=== PATIENT | male | born 1965 | race Caucasian/White ===

== ENCOUNTER 2017-10-02 21:00 | Observation (INO) ==
[2017-10-02 21:33] LABS: Basophils # 0.1 K/mm3 (0-0.2); Basophils % 0.9 % (0.1-2.0); Eosinophils # 0.2 K/mm3 (0.0-0.4); Eosinophils % 2.9 % (0.1-12.0); Hematocrit 38.8 % (42.0-52.0); Hemoglobin 13.2 g/dL (14.1-18.0); Lymphocytes # 3.4 K/mm3 (0.7-4.5); Lymphocytes % 40.9 K/mm3 (10-50); Mean Corpuscular Hemoglobin 28.3 pg (27.0-31.2); Mean Corpuscular Volume 83.1 fl (80-94); Mean Platelet Volume 7.4 fl (7.4-10.4); Monocytes # 0.4 K/mm3 (0.1-1.0); Monocytes % 5.2 % (1.7-9.3); Neutrophils # 4.2 K/mm3 (1.8-7.8); Neutrophils % 50.1 % (37.0-80.0); Platelet Count 223 K/mm3 (142-424); Red Blood Count 4.66 M/mm3 (4.60-6.20); Red Cell Distribution Width 13.4 % (11.5-17.5); White Blood Count 8.3 K/mm3 (4.8-10.8)
[2017-10-02 21:47] LABS: Anion Gap 12.3 mEq/L (5-15); Blood Urea Nitrogen 13 mg/dL (7-18); Calcium 9.1 mg/dL (8.5-10.1); Carbon Dioxide 27 mmol/L (21.0-32.0); Chloride 103 mmol/L (98-107); Glucose 170 mg/dL (74-106); Potassium 3.3 mmoL/L (3.5-5.1); Sodium 139 mmol/L (136-145)
--- NOTE | 2017-10-02 22:40 | Emergency Department Note ---
ED Disposition Clinical Impression: Chest pain Qualifiers: Chest pain type: other chest pain Qualified Code(s): R07.89 - Other chest pain ; R07.8 - Other chest pain Diabetes mellitus Qualifiers: Diabetes mellitus type: type 2 Diabetes mellitus oysterman insulin use: unspecified halfway insulin use status Diabetes mellitus complication status: with unspecified complications Qualified Code(s): E11.8 - Type 2 diabetes mellitus with unspecified complications Shoulder pain, left Qualifiers: Chronicity: acute Qualified Code(s): M25.512 - Pain in left shoulder Disposition: Admitted as Observation Condition on Discharge: Good Referrals: Slainas Gibbons MD [Primary Care Provider] - - Critical Care Critical Care Time: No Attestation: On 10/02/17, the high probability of a clinically significant, sudden or life threatening deterioration of the following system(s) required my full and direct attention, intervention and personal management. The time I documented below is in addition to time spent performing reported procedures but includes the following listed in this critical care notation. Medical Decision Making - Medical Records Medical records reviewed: Yes: I reviewed the patient's medical records. - [place] Inquiry Pt receiving controlled substance: No Vital Signs: 10/02/17 21:04 10/02/17 21:19 10/02/17 22:01 Temperature 98.1 F 98.2 F Temperature Source Temporal Artery Scan Oral Pulse Rate [Right Brachial] 64 80 54 L Respiratory Rate 16 18 18 Blood Pressure [Right Arm] 157/84 157/84 138/75 Blood Pressure Mean [Right Arm] 108 108 96 Blood Pressure Source [Right Arm] Automatic Cuff Automatic Cuff Blood Pressure Position [Right Arm] Sitting Sitting 02 Sat by Pulse Oximetry 97 96 97 Oxygen Delivery Method Room Air Room Air - Lab Data Lab results reviewed: Yes: I reviewed the patient's lab results. Lab Results 10/02/17 21:20: WBC 8.3, RBC 4.66, Hgb 13.2 L, Hct 38.8 L, MCV 83.1, MCH 28.3, MCHC 34.0, RDW 13.4, Plt Count 223, MPV 7.4, Neut % (Auto) 50.1, Lymph % (Auto) 40.9, [place] % (Auto) 5.2, Eos % (Auto) 2.9, Baso % (Auto) 0.9, Neut # (Auto) 4.2 , Lymph # (Auto) 3.4, [place] # (Auto) 0.4, Eos # (Auto) 0.2, Baso # (Auto) 0.1 10/02/17 21:20: Sodium 139, Potassium 3.3 L, Chloride 103, Carbon Dioxide 27, Anion Gap 12.3, BUN 13, Creatinine 1.00, Estimated Creat Clear 113, Estimated GFR 79, Est GFR ( Amer) 96, Glucose 170 H, Calcium 9.1, Troponin I < 0.02 Result diagrams: 10/02/17 21:20 10/02/17 21:20 Orders (Tests/Meds): ED MEDICATIONS Discontinued Medications Generic Name Dose Route Start Last Admin Trade Name Freq PRN Reason Stop Dose Admin Aspirin 325 mg 10/02/17 21:14 10/02/17 21:16 Aspirin 325mg Tablet PO 10/02/17 21:15 325 mg ONCE ONE Administration Morphine Sulfate 4 mg 10/02/17 22:21 10/02/17 22:25 Morphine 4mg/Ml Syringe IV 10/02/17 22:22 4 mg ONCE ONE Administration Nitroglycerin 0.4 mg 10/02/17 21:14 10/02/17 21:15 Nitrostat 0.4mg Sl Tablet SL 10/02/17 21:15 0.4 mg ONCE ONE Administration Nitroglycerin 1 gm 10/02/17 22:21 10/02/17 22:25 Nitroglycerin 1 Inch Oint Udp TD 10/02/17 22:22 1 gm ONCE ONE Administration Ondansetron HCl 4 mg 10/02/17 22:21 10/02/17 22:25 Zofran 4mg/2ml Vial IV 10/02/17 22:22 4 mg ONCE ONE Administration ORDERS Category Date Time Status XR chest 2V Stat Exams 10/02/17 21:14 Taken - Radiology Data #1 Image(s): Chest Image Reviewed: Yes I reviewed the patient's radiology image Preliminary Findings: Normal/NAD - ECG Data Tracing #1 Normal Sinus Rhythm: Yes Ischemic changes: non-specific ST-T wave changes - Physician Consults Physician Consulted: kylie Reason -: Admission Chest Pain HPI - General Chief Complaint: Chest Pain Stated Complaint: left arm pain Time Seen by Provider: 10/02/17 21:30 Mode of Arrival: Ambulatory Source of Information: Patient, Spouse, Medical Record Limitations: No Limitations Description of Symptoms (Recalled from ER Triage Doc. by RN): Pt advises he has pain shooting down into his arm and into his chest. Advises the pain has gotten worse today. - History of Present Illness HPI narrative: pt with lt ant chest pain over the last few days - he has no known card disease - he has lt neck with rad to lt upper ext but feels this is different than his chst pain MD complaint: chest pain indicative of cardiac Onset (ago): day(s) Duration: intermittent Activity at onset: during rest Pain location: left chest Severity: moderate Quality: other (thrombing) Relieving factors: nothing Risk Factors for CAD: Hypertension, Hypercholesterolemia, Family Hx of CAD, Diabetes Treatments prior to or on arrival for Cardiac Chest Pain: none - TAWANNA Score Non-Stemi Age of patient: Less than 65 yrs Number of risk factors for CAD: Presence of 3 or more Prior coronary artery stenosis(seen in coronary angiography): Less than 50% ST-Segment deviation on ECG (more than 1 min): Absent Prior aspirin intake: No ASA in the last 7 days Severe anginal chest pain: No or one episode in last 24 hours Elevated cardiac markers(CK-MB or troponin): Absent Non-Stemi Risk Score: 1 - Related Data Home Medications Medication Instructions Recorded Confirmed glipiZIDE [Glipizide] 10 mg PO DAILY 10/02/17 10/02/17 Allergies Allergy/AdvReac Type Severity Reaction Status Date / Time No Known Allergies Allergy Verified 10/02/17 21:12 [facility] History I have reviewed the patient's past medical history: Yes Medical History: Reports:: Diabetes Mellitus Type 2 Denies:: Cancer, Diabetes Mellitus Type 1, Internal Pacemaker, MRSA Other Surgeries: No: Pacemaker Amputation: No Fractures: Yes (right hand) - Social History Alcohol Intake: never - Psychiatric History Expresses thoughts of harming self/others: None Suicide Plan Description: No Plan ROS Obtained: Yes All systems reviewed & no additional complaints - Constitutional Constitutional: Denies fever(s) - Eyes Eyes: Denies change in vision - ENT Ears, Nose, Mouth, and Throat: Denies sore throat - Cardiovascular Cardiovascular: Reports chest pain, Denies dyspnea - Respiratory Respiratory: No cough - Gastrointestinal Gastrointestingal: Denies: abdominal pain - Genitourinary Male Genitourinary: Denies hematuria - Musculoskeletal Musculoskeletal: Reports as per HPI, Reports joint pain, Denies joint swelling, Reports limited range of motion, Reports neck pain - Integumentary/Breasts Skin/Breast: Denies rash - Neurologic Neurologic: Denies seizure-like activity Physical Exam - General General appearance: alert, in no apparent distress - Head Head exam: atraumatic, normocephalic - Eye Eye exam: Present: PERRL, EOMI - ENT ENT exam: Present: mucous membranes moist - Neck Neck exam: Present: trachea midline - Chest Chest inspection: Present: normal inspection - Respiratory Respiratory exam: Present: normal lung sounds bilaterally - Cardiovascular Cardiovascular exam: Present: regular rate, systolic murmur - Abdominal Exam Abdominal exam: Present: soft - Extremities Exam Extremities exam: Present: other (dec rom of lt upper ext ). Absent: joint swelling - Neurological Exam Neurological exam: Present: alert, oriented X3, CN II-XII intact - Psychiatric Psychiatric exam: Present: normal affect - Skin Skin exam: Absent: rash
[2017-10-03 06:00] LABS: Basophils # 0.1 K/mm3 (0-0.2); Basophils % 0.7 % (0.1-2.0); Eosinophils # 0.2 K/mm3 (0.0-0.4); Eosinophils % 2.3 % (0.1-12.0); Hematocrit 36.8 % (42.0-52.0); Hemoglobin 12.1 g/dL (14.1-18.0); Lymphocytes # 3.1 K/mm3 (0.7-4.5); Lymphocytes % 42.6 K/mm3 (10-50); Mean Corpuscular HGB Conc 32.9 g/dL (31.8-35.4); Mean Corpuscular Volume 85.1 fl (80-94); Mean Platelet Volume 7.6 fl (7.4-10.4); Monocytes # 0.4 K/mm3 (0.1-1.0); Neutrophils # 3.6 K/mm3 (1.8-7.8); Neutrophils % 49.3 % (37.0-80.0); Platelet Count 181 K/mm3 (142-424); Red Blood Count 4.33 M/mm3 (4.60-6.20); Red Cell Distribution Width 13.5 % (11.5-17.5); White Blood Count 7.3 K/mm3 (4.8-10.8)
[2017-10-03 06:10] LABS: Anion Gap 9.3 mEq/L (5-15); Blood Urea Nitrogen 13 mg/dL (7-18); Calcium 8.3 mg/dL (8.5-10.1); Carbon Dioxide 29 mmol/L (21.0-32.0); Chloride 105 mmol/L (98-107); Chol/HDL Ratio 5.4 (1-3.5); Cholesterol 145 mg/dL (140-200); Glucose 187 mg/dL (74-106); HDL Cholesterol 27 mg/dL (27-67); Potassium 3.3 mmoL/L (3.5-5.1); Sodium 140 mmol/L (136-145)
[2017-10-03 06:30] LABS: Triglycerides 443 mg/dL (30-200)
--- NOTE | 2017-10-03 07:32 | Pharmacy Consult Notes ---
[facility] Pharmacy VTE Monitoring - Patient Demographics Admission date: 10/02/17 Report Date: 10/03/17 Time: 07:32 Allergies/Adverse Reactions: Patient Allergies No Known Allergies Allergy (Verified 10/02/17 21:12) Height: 1.78 m Weight: 88.932 kg Patient Problems: Current Active Problems Chest pain (Acute) Diabetes mellitus (Acute) Shoulder pain, left (Acute) - VTE Risk Labs: VTE Related Lab Results Hgb 12.1 g/dL (14.1-18.0) L 10/03/17 05:05 Hct 36.8 % (42.0-52.0) L 10/03/17 05:05 Plt Count 181 K/mm3 (142-424) 10/03/17 05:05 BUN 13 mg/dL (7-18) 10/03/17 05:05 Creatinine 0.90 mg/dL (0.70-1.30) 10/03/17 05:05 Estimated Creat Clear 124 mL/min (0-300) 10/03/17 05:05 Was VTE Risk Assessment Performed: Yes VTE Score: 3 VTE Risk Level: Low Risk - Prophylaxis VTE Prophylaxis Ordered?: Yes Types of VTE Prophylaxis: TEDS Knee High Location of Applied Device: Bilateral Lower Extremeties - VTE Diagnosis Confirmed Treatment or plan recommended: Continue Current Treatment
--- NOTE | 2017-10-03 07:40 | Consult Report ---
History of Present Illness Consult date: 10/03/17 Requesting physician: Melvin Garner Consult reason: chest pain Chief complaint: chest pain, arm pain Additional Medical History:: 1. History of hypertension 2. Diabetes mellitus, treated for about 2 years A. Neuropathy 3. Possible history of CVA with left-sided weakness, 8 years ago with workup in [place] 4. Family history of heart disease in his mother in her 50s History of present illness: 52-year-old white male with history of diabetes presented to the emergency department for 2 week history of persistent chest pain with left arm discomfort. Patient has a physically demanding job and has some left arm discomfort that is worse with certain positions. He also notes exertional shortness of breath and increase in chest discomfort. Patient describes the discomfort as a left-sided, sharp heaviness that has been present for 2 weeks. Patient denies any relief with nitroglycerin given in the emergency department. Patient was admitted through the emergency department for further evaluation. All troponins have returned normal overnight. EKG is sinus without ST segment changes. Patient does relate that he has been off of all medications for his diabetes and blood pressure for at least 3 weeks while working out of town. Cardiology consulted for further evaluation and recommendations. Patient relates a remote history of questionable heart attack with stress test in the past that he "barely passed" but with no further recommendations for workup. [facility] History Medical History: Reports:: Diabetes Mellitus Type 2, Myocardial Infarction Denies:: Cancer, Diabetes Mellitus Type 1, Internal Pacemaker, MRSA Other Surgeries: Yes: Appendectomy, Hernia Repair (21 yrs old). No: Pacemaker Amputation: No Fractures: Yes (right hand) - *Social History Alcohol Intake: never Occupational Status: employed Household Members: significant other - Psychiatric History Expresses thoughts of harming self/others: None Suicide Plan Description: No Plan *Family Hx:: Diabetes, Heart Attack, Hypertension, Stroke Meds Home Medications Medication Instructions Recorded Confirmed Type glipiZIDE [Glipizide] 10 mg PO DAILY 10/02/17 10/02/17 History Allergies Allergy/AdvReac Type Severity Reaction Status Date / Time No Known Allergies Allergy Verified 10/02/17 21:12 Review of Systems - *Cardiovascular Reports chest pain, Reports shortness of breath with activity - *Respiratory Reports shortness of breath with activity - *Gastrointestinal Denies abdominal pain, Denies loose stools - *Genitourinary Denies blood in urine - *Musculoskeletal Denies back pain - *Neurologic Denies seizure-like activity Exam Vital signs and Labs for Last 24 Hours: Temp Pulse Resp BP Pulse Ox 97.0 F L 60 18 121/55 96 10/03/17 03:22 10/03/17 04:00 10/03/17 03:22 10/03/17 03:22 10/03/17 03:22 Laboratory Results - last 24 hr 10/02/17 21:20: WBC 8.3, RBC 4.66, Hgb 13.2 L, Hct 38.8 L, MCV 83.1, MCH 28.3, MCHC 34.0, RDW 13.4, Plt Count 223, MPV 7.4, Neut % (Auto) 50.1, Lymph % (Auto) 40.9, [place] % (Auto) 5.2, Eos % (Auto) 2.9, Baso % (Auto) 0.9, Neut # (Auto) 4.2, Lymph # (Auto) 3.4, [place] # (Auto) 0.4, Eos # (Auto) 0.2, Baso # (Auto) 0.1 10/02/17 21:20: Sodium 139, Potassium 3.3 L, Chloride 103, Carbon Dioxide 27, Anion Gap 12.3, BUN 13, Creatinine 1.00, Estimated Creat Clear 113, Estimated GFR 79, Est GFR ( Amer) 96, Glucose 170 H, Calcium 9.1, Troponin I < 0.02 10/02/17 23:09: Troponin I < 0.02 10/03/17 02:10: Troponin I < 0.02 10/03/17 05:05: Troponin I < 0.02 10/03/17 05:05: WBC 7.3, RBC 4.33 L, Hgb 12.1 L, Hct 36.8 L, MCV 85.1, MCH 28.0, MCHC 32.9, RDW 13.5, Plt Count 181, MPV 7.6, Neut % (Auto) 49.3, Lymph % (Auto) 42.6, [place] % (Auto) 5.0, Eos % (Auto) 2.3, Baso % (Auto) 0.7, Neut # (Auto) 3.6, Lymph # (Auto) 3.1, [place] # (Auto) 0.4, Eos # (Auto) 0.2, Baso # (Auto) 0.1 10/03/17 05:05: Sodium 140, Potassium 3.3 L, Chloride 105, Carbon Dioxide 29, Anion Gap 9.3, BUN 13, Creatinine 0.90, Estimated Creat Clear 124, Estimated GFR 89, Est GFR ( Amer) 108, Glucose 187 H, Calcium 8.3 L, Magnesium 2.0, Triglycerides 443 H, Cholesterol 145, HDL Cholesterol 27, Cholesterol/HDL Ratio 5.4 H 10/03/17 06:00: POC Glucose 160 H I & O for Last 24 hours: Intake & Output 09/30/17 10/01/17 10/02/17 10/03/17 11:59 11:59 11:59 11:59 Intake Total 563 / 563 Balance 563 / 563 Weight 196 lb 1 oz - *Routine Neck Exam Absent: JVD, carotid bruit - *Routine Respiratory Exam Present: CTA bilaterally - *Routine Cardiovascular Exam Present: RRR. Absent: murmur, gallop, rubs - *Routine Abdominal Exam Present: soft. Absent: tenderness - *Routine Extremities Exam Absent: edema - *Routine Neurological Exam Present: alert, oriented X3, moving all extremities Assessment and Plan (1) Chest pain Current visit: Yes Status: Acute Qualifiers: Chest pain type: other chest pain Qualified Code(s): R07.89 - Other chest pain; R07.8 - Other chest pain Category: Medical Code(s): R07.9 - Chest pain, unspecified (2) Diabetes mellitus Current visit: Yes Status: Acute Qualifiers: Diabetes mellitus type: type 2 Diabetes mellitus fdc insulin use: unspecified fdc insulin use status Diabetes mellitus complication status: with unspecified complications Qualified Code(s): E11.8 - Type 2 diabetes mellitus with unspecified complications Category: Medical Code(s): E11.9 - Type 2 diabetes mellitus without complications (3) Shoulder pain, left Current visit: Yes Status: Acute Qualifiers: Chronicity: acute Qualified Code(s): M25.512 - Pain in left shoulder Category: Medical Code(s): M25.512 - Pain in left shoulder - Assessment and plan all Dx Assessment and Plan for all problems:: 1. 2 weeks of chest pain with left arm discomfort with normal troponins, EKG without acute changes and preliminary echocardiogram showing preserved left ventricular ejection fraction with no segmental wall motion abnormalities. Chest pain reproducible with palpation. No relief or improvement in symptoms with nitroglycerin paste. Patient has a TAWANNA score of 2 for which we would recommend outpatient stress testing with a [employer] Myoview due to patient's inability to ambulate on the treadmill secondary to neuropathy. Patient can be discharged home on aspirin 81 mg daily and low-dose Norvasc for blood pressure and antianginal properties. 2. Follow up in 1-2 wks.
[2017-10-03 11:43] VITALS: BP 124/64
--- NOTE | 2017-10-03 13:49 | H&P/Discharge Summary ---
General - General Admission date:: 10/02/17 Discharge date: 10/03/17 *Admission Date: 10/02/17 *Chief complaint: Shoulder pain and left neck pain *History of present illness: Mr. Gillespie is a 52-year-old white male with history of diabetes who presents with 2 weeks of left shoulder and neck pain that has progressively gotten worse. He initially presented to the ER because the pain was so intense he was unable to lift his arm above shoulder height. The pain additionally has radiated into his chest and left upper back. 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 States approximately 2 weeks ago he began to have left pain that has gotten worse to the point he is having difficulty using his left arm. Initially he complains of exertional shortness of breath and increase in chest discomfort. Patient describes the discomfort as a left-sided, sharp heaviness that has been present for 2 weeks. Patient denies any relief with nitroglycerin given in the emergency department. Patient was admitted to medicine for further evaluation and cardiology consult. Troponins and EKG were normal with EKG showing sinus rhythm and no ST segment changes. Cardiology saw Mr. Gillespie this morning. Echo was obtained with essentially normal findings. Denies syncope, palpitations, or vomiting, diarrhea. [facility] History Medical History: Reports:: Diabetes Mellitus Type 2, Myocardial Infarction Denies:: Cancer, Diabetes Mellitus Type 1, Internal Pacemaker, MRSA Other Surgeries: Yes: Appendectomy, Hernia Repair (21 yrs old). No: Pacemaker Amputation: No Fractures: Yes (right hand) - *Social History Alcohol Intake: never Occupational Status: employed Household Members: significant other - Psychiatric History Expresses thoughts of harming self/others: None Suicide Plan Description: No Plan *Family Hx:: Diabetes, Heart Attack, Hypertension, Stroke Review of Systems - Review of Systems Review of systems:: pertinent systems reviewed and negative unless documented below - *Neurologic Denies seizure-like activity Exam Vital signs and Labs for Last 24 Hours: Temp Pulse Resp BP Pulse Ox 97.8 F 53 L 18 124/64 98 10/03/17 11:42 10/03/17 12:00 10/03/17 11:42 10/03/17 11:42 10/03/17 11:42 Laboratory Results - last 24 hr 10/02/17 21:20: WBC 8.3, RBC 4.66, Hgb 13.2 L, Hct 38.8 L, MCV 83.1, MCH 28.3, MCHC 34.0, RDW 13.4, Plt Count 223, MPV 7.4, Neut % (Auto) 50.1, Lymph % (Auto) 40.9, [place] % (Auto) 5.2, Eos % (Auto) 2.9, Baso % (Auto) 0.9, Neut # (Auto) 4.2 , Lymph # (Auto) 3.4, [place] # (Auto) 0.4, Eos # (Auto) 0.2, Baso # (Auto) 0.1 10/02/17 21:20: Sodium 139, Potassium 3.3 L, Chloride 103, Carbon Dioxide 27, Anion Gap 12.3, BUN 13, Creatinine 1.00, Estimated Creat Clear 113, Estimated GFR 79, Est GFR ( Amer) 96, Glucose 170 H, Calcium 9.1, Troponin I < 0.02 10/02/17 23:09: Troponin I < 0.02 10/03/17 02:10: Troponin I < 0.02 10/03/17 05:05: Troponin I < 0.02 10/03/17 05:05: WBC 7.3, RBC 4.33 L, Hgb 12.1 L, Hct 36.8 L, MCV 85.1, MCH 28.0 , MCHC 32.9, RDW 13.5, Plt Count 181, MPV 7.6, Neut % (Auto) 49.3, Lymph % (Auto ) 42.6, [place] % (Auto) 5.0, Eos % (Auto) 2.3, Baso % (Auto) 0.7, Neut # (Auto) 3.6, Lymph # (Auto) 3.1, [place] # (Auto) 0.4, Eos # (Auto) 0.2, Baso # (Auto) 0.1 10/03/17 05:05: Sodium 140, Potassium 3.3 L, Chloride 105, Carbon Dioxide 29, Anion Gap 9.3, BUN 13, Creatinine 0.90, Estimated Creat Clear 124, Estimated GFR 89, Est GFR ( Amer) 108, Glucose 187 H, Calcium 8.3 L, Magnesium 2.0 , Triglycerides 443 H, Cholesterol 145, HDL Cholesterol 27, Cholesterol/HDL Ratio 5.4 H 10/03/17 06:00: POC Glucose 160 H 10/03/17 11:05: POC Glucose 171 H I & O for Last 24 hours: Intake & Output 09/30/17 10/01/17 10/02/17 10/03/17 23:59 23:59 23:59 23:59 Intake Total 563 / 563 Balance 563 / 563 Weight 88.932 kg 88.932 kg - *Routine HEENT Exam Head: Present: normocephalic, atraumatic Eye: Present: EOMI, PERRL ENT: Present: mucous membranes moist - *Routine Neck Exam Present: supple, full ROM Comments: tender in left trap - *Routine Respiratory Exam Present: CTA bilaterally. Absent: prolonged expiratory phase, rales, wheezes, crackles - *Routine Cardiovascular Exam Present: RRR, Normal S1, Normal S2. Absent: murmur - *Routine Abdominal Exam Present: soft, normoactive bowel sounds - *Routine Rectal Exam Patient deferred: visual exam - *Routine Exam Patient deferred: penile exam - *Routine Extremities Exam Absent: cyanosis, clubbing Comments: left shoulder with positive empty can test on left. Pain to palpation of anterior shoulder, pain with internal and external rotation. Unable to actively raise arm above height of shoulder due to extreme pain. Significant rotator cuff discomfort - *Routine Skin Exam Present: intact. Absent: cyanosis - *Routine Neurological Exam Present: alert, oriented X3, CN II-XII intact. Absent: sensory deficit, motor deficit Hospital Course Hospital Course: Patient was admitted from the emergency room to the medicine service. Serial troponins were negative. EKG with no ST segment changes. Echo essentially normal. Cardiology consulted and recommended optimization of management with addition of Norvasc. Physical exam during admission significant for rotator cuff arthropathy. Patient amenable to rotator cuff injection which was performed at bedside. Remained hemodynamically stable with no further concern or need for inpatient admission. Discharged home in stable condition with plans for cardiology and primary care follow-up. Referred to physical therapy for further treatment of left rotator cuff injury. Results Labs on day of discharge: Labs from last 24 hours 10/03/17 10/03/17 10/03/17 11:05 06:00 05:05 WBC RBC Hgb Hct MCV MCH MCHC RDW Plt Count MPV Neut % (Auto) Lymph % (Auto) [place] % (Auto) Eos % (Auto) Baso % (Auto) Neut # (Auto) Lymph # (Auto) [place] # (Auto) Eos # (Auto) Baso # (Auto) Sodium 140 Potassium 3.3 L Chloride 105 Carbon Dioxide 29 Anion Gap 9.3 BUN 13 Creatinine 0.90 Estimated Creat Clear 124 Estimated GFR 89 Est GFR ( Amer) 108 Glucose 187 H POC Glucose 171 H 160 H Calcium 8.3 L Magnesium 2.0 Troponin I Triglycerides 443 H Cholesterol 145 HDL Cholesterol 27 Cholesterol/HDL Ratio 5.4 H 10/03/17 10/03/17 10/03/17 05:05 05:05 02:10 WBC 7.3 RBC 4.33 L Hgb 12.1 L Hct 36.8 L MCV 85.1 MCH 28.0 MCHC 32.9 RDW 13.5 Plt Count 181 MPV 7.6 Neut % (Auto) 49.3 Lymph % (Auto) 42.6 [place] % (Auto) 5.0 Eos % (Auto) 2.3 Baso % (Auto) 0.7 Neut # (Auto) 3.6 Lymph # (Auto) 3.1 [place] # (Auto) 0.4 Eos # (Auto) 0.2 Baso # (Auto) 0.1 Sodium Potassium Chloride Carbon Dioxide Anion Gap BUN Creatinine Estimated Creat Clear Estimated GFR Est GFR ( Amer) Glucose POC Glucose Calcium Magnesium Troponin I < 0.02 < 0.02 Triglycerides Cholesterol HDL Cholesterol Cholesterol/HDL Ratio 10/02/17 10/02/17 10/02/17 23:09 21:20 21:20 WBC 8.3 RBC 4.66 Hgb 13.2 L Hct 38.8 L MCV 83.1 MCH 28.3 MCHC 34.0 RDW 13.4 Plt Count 223 MPV 7.4 Neut % (Auto) 50.1 Lymph % (Auto) 40.9 [place] % (Auto) 5.2 Eos % (Auto) 2.9 Baso % (Auto) 0.9 Neut # (Auto) 4.2 Lymph # (Auto) 3.4 [place] # (Auto) 0.4 Eos # (Auto) 0.2 Baso # (Auto) 0.1 Sodium 139 Potassium 3.3 L Chloride 103 Carbon Dioxide 27 Anion Gap 12.3 BUN 13 Creatinine 1.00 Estimated Creat Clear 113 Estimated GFR 79 Est GFR ( Amer) 96 Glucose 170 H POC Glucose Calcium 9.1 Magnesium Troponin I < 0.02 < 0.02 Triglycerides Cholesterol HDL Cholesterol Cholesterol/HDL Ratio DS: Diagnosis - Discharge Diagnosis (1) Chest pain Status: Acute Problem details: Radiating from shoulder. Cardiac workup negative. Initiated Norvasc, stable at time of discharge home without further incident. (2) Diabetes mellitus Status: Chronic (3) Shoulder pain, left Status: Acute Problem details: Left rotator cuff arthropathy. Injection of lidocaine, bupivacaine, triamcinolone administered at bedside. Referred to physical therapy. Follow-up with primary care. Discharge Medications - Medications for Discharge Home Medication List at Discharge: New Amlodipine Besylate [Norvasc 2.5mg tablet] 2.5 mg PO DAILY 30 Days #30 tab Aspirin [Aspirin 81mg chewable tab] 81 mg PO DAILY 30 Days #30 tab.chew Continue glipiZIDE [Glipizide] 10 mg PO DAILY Disposition Disposition: Home, Self-Care
--- NOTE | 2017-10-03 20:09 | Cardiology Report ---
PROCEDURE: 2-D M-mode and color Doppler study INDICATIONS FOR THE TEST: Chest pain X COPD Heart Murmur Tobacco Smoking Palpitations Fatigue Syncope Edema HypertensionXDiabetes MellitusX Rheumatic Fever SOB [place] Obesity HyperlipidemiaX Family History HD Additional History CAD PATIENT INFORMATION HEIGHT: 70 WEIGHT:200 GENDER: Male B/P:138/75 2-D/M-MODE INTERPRETATION: 2-D MEASUREMENTS OBSERVED VALUES IN CMS Right Ventricular Dimension (RVDd) 2.0 Interventricular Septum (Thickness)(IVsd) .9 Left Ventricular Internal Dimensions(LVIDd) 4.6 Left Ventricular Posterior Wall (Thickness)(LVPWd) 1.0 Aortic Root 3.4 Aortic Cusp Separation 2.1 Left Atrial Dimensions (LAD) 4.0 2D 1. Left atrium is qualitatively mildly enlarged, left ventricle is normal size, mild concentric left ventricular hypertrophy, visually estimated ejection fraction 55% with no obvious regional wall motion abnormality. 2. The right atrium and right ventricle are normal size and contractility. 3. The aortic valve is minimally thickened and fibrosed. 4. The mitral and tricuspid valve are grossly normal. 5. The pulmonic valve is poorly visualized. 6. No significant pericardial effusion noted. DOPPLER INTERROGATION: Doppler interrogation of the aortic, mitral and tricuspid valvular presence of mild mitral and tricuspid regurgitation, tricuspid regurgitant jet velocity is insufficient for calculation of the right ventricular systolic pressure, diastolic parameters are inconclusive. CONCLUSION: 1. Mildly enlarged left atrium, normal left ventricular size, mild concentric left ventricular hypertrophy, visually estimated ejection fraction 55% with no obvious regional wall motion abnormality, diastolic parameters are inconclusive. 2. Mild mitral and tricuspid regurgitation 3. No significant pericardial effusion noted.
--- NOTE | 2017-10-03 23:18 | Procedure Note ---
[facility] Procedure Note Procedure Note:: Left rotator cuff arthropathy, corticosteroid injection. Arm due to clinically significant findings of rotator cuff pain on exam. Risk and benefit of procedure explained to patient. Written consent obtained. -Sterile prep using Betadine performed for posterior approach. 4 cc of 1% lidocaine, 4 cc of 0.5% bupivacaine, and 2 cc of 40 mg/mL Kenalog injected into left shoulder. Using 1-1/2 inch 21-gauge needle. Negative pressure with no blood or air aspirated prior to injection. patient had no complications and tolerated procedure well. Injection site dressed with Tegaderm. Passive motion and movement of arm after procedure showed mild decrease in pain.
== END 2017-10-03 14:40 | disposition home or self-care (01) ==
LOC: ER 21:00 → 2ND 21:00
PROVIDERS: ADMIT Family Medicine; ATTEND Internal Medicine Adolescent Medicine
CPT/HCPCS: 36415; 71020; 71046; 80048; 80061; 82962; 83735; 84484; 85025; 93005; 93306; 96374; 96375; 99284; G0378; J2405

== ENCOUNTER 2018-07-26 22:34 | Emergency (ER) | payer MEDICAID, SELFPAY ==
[2018-07-26 22:42] VITALS: BP 154/92; PULSE 62; RESP 20; TEMP 36.4; O2SAT 98; BMI 30.2
--- NOTE | 2018-07-26 22:55 | [facility].EDEAR ---
ED Disposition Clinical Impression: Otitis media Qualifiers: Otitis media type: unspecified Chronicity: acute Qualified Code(s): H66.90 - Otitis media, unspecified, unspecified ear Otitis externa Qualifiers: Otitis externa type: unspecified type Chronicity: acute Laterality: left Qualified Code(s): H60.502 - Unspecified acute noninfective otitis externa, left ear Disposition: Home, Self-Care Condition on Discharge: Good Instructions: Otitis Externa Additional Instructions: fluids and use meds and see pcp for follow up Prescriptions: cephALEXin [Keflex 500mg Cap] 500 mg PO TID #30 cap Referrals: Salinas Gibbons MD [Primary Care Provider] - - Critical Care Critical Care Time: No Attestation: On 07/26/18, the high probability of a clinically significant, sudden or life threatening deterioration of the following system(s) required my full and direct attention, intervention and personal management. The time I documented below is in addition to time spent performing reported procedures but includes the following listed in this critical care notation. Medical Decision Making - Medical Records Medical records reviewed: Yes: I reviewed the patient's medical records. - [place] Inquiry Pt receiving controlled substance: No Vital Signs: 07/26/18 22:42 Temperature 97.6 F Temperature Source Oral Pulse Rate [Right Radial] 62 Respiratory Rate 20 Blood Pressure [Right Arm] 154/92 H Blood Pressure Mean [Right Arm] 112 02 Sat by Pulse Oximetry 98 Ear HPI - General Chief complaint: Ear Stated complaint: AO [id number] Possible tick in L Ear Time Seen by Provider: 07/26/18 22:50 Mode of Arrival: Ambulatory Source of Information: Patient, Medical Record Limitations: No Limitations Description of Symptoms (Recalled from ER Triage Doc. by RN): pt c/o left ear pain. states it is painful and swollen x 2 days. - History of Present Illness HPI Narrative: swelling tender lt ear with no drainage over the last few hrs Complaint: ear pain Location: left ear Duration: constant Severity: moderate Discharge from ear: no Associated symptoms ear: external ear tenderness, ear swelling Treatment prior to arrival: none - Related Data Home Medications Medication Instructions Recorded Confirmed glipiZIDE [Glipizide] 10 mg PO DAILY 10/02/17 04/27/18 Glimepiride [Amaryl] 2 mg PO BID 12/22/17 04/27/18 Amlodipine Besylate [Norvasc 2.5mg 2.5 mg PO DAILY 04/27/18 04/27/18 Tab] Aspirin [Aspirin 81mg chewable 81 mg PO DAILY 04/27/18 04/27/18 tab] Gabapentin [Gabapentin 300mg Cap] 300 mg PO BID 04/27/18 04/27/18 Sitagliptin Phosphate [Januvia 100 mg PO DAILY 04/27/18 04/27/18 100mg tablet] Previous Rx's Medication Instructions Recorded Ibuprofen [Ibuprofen 800mg Tab] 800 mg PO Q8HP PRN #15 tab 03/13/18 cephALEXin [Keflex 500mg Cap] 500 mg PO TID #30 cap 07/26/18 Allergies Allergy/AdvReac Type Severity Reaction Status Date / Time No Known Allergies Allergy Verified 07/26/18 22:45 [facility] History - Hepatitis A Screen Drug use history?: No High risk sexual behaviors?: No History of sexually transmitted infection?: No Currently employed?: No Childcare worker?: No Do you have indoor plumbing?: Yes Do you have electricity?: Yes Attestation statement:: This patient has been screened for Hepatitis A risk factors. I have reviewed the patient's past medical history: Yes Medical History: Reports:: Diabetes Mellitus Type 1, Myocardial Infarction Denies:: Cancer, Diabetes Mellitus Type 2, Internal Pacemaker, MRSA Laterality Cases: Right: Other Other Surgeries: Yes: Appendectomy, Hernia Repair (21 yrs old). No: Pacemaker Amputation: No Fractures: Yes (right hand) - Social History Smoking Status: Never smoker Alcohol Intake: never Alcohol Intake Frequency:: holidays/special occasions only Occupational Status: unemployed Housing: house Household Members: significant other - Psychiatric History
[2018-07-26 23:13] VITALS: BP 158/74; PULSE 89; RESP 17; TEMP 36.8; O2SAT 96
== END 2018-07-26 23:14 | disposition home or self-care (01) ==
PROVIDERS: Emergency Provider Emergency Medicine; PCP Internal Medicine Adolescent Medicine
DX: H60.502 Unspecified acute noninfective otitis externa, left ear (principal); E10.9 Type 1 diabetes mellitus without complications
CPT/HCPCS: 99281